=== PATIENT | female | born 1995 ===

== ENCOUNTER → 2018-03-07 | Outpatient (CLI) | payer OTHER ==
[~2018-03-07] MED LIST: Naprosyn500 MG PO; Norco 5-325 Ta1 EACH PO
[2018-03-07 14:17] LABS: Candida species (DNA Probe) Negative (NEGATIVE); G. vaginalis (DNA Probe) Negative (NEGATIVE); T. vaginalis (DNA Probe) Negative (NEGATIVE)
== END ==
LOC: LAB SHORT 11:41 → LAB 11:41
PROVIDERS: Advanced Practice Midwife
DX: Z01.419 Encounter for gynecological examination (general) (routine) without abnormal findings (principal); Z11.3 Encounter for screening for infections with a predominantly sexual mode of transmission; R10.2 Pelvic and perineal pain
CPT/HCPCS: 87480; 87510; 87660; G0123

== ENCOUNTER → 2021-01-15 | Outpatient (CLI) | payer OTHER | END | disposition home or self-care (01) | LOC: LAB SHORT 13:48 → PLD 13:48 | DX: R87.619 Unspecified abnormal cytological findings in specimens from cervix uteri (principal) | CPT/HCPCS: 88305 ==

== ENCOUNTER → 2021-02-05 | Outpatient (CLI) | payer OTHER, SELFPAY | LOC: PLD 13:35 → LAB SHORT 13:35 | DX: R87.619 Unspecified abnormal cytological findings in specimens from cervix uteri (principal) | CPT/HCPCS: 88307 ==

== ENCOUNTER → 2021-10-29 | Outpatient (CLI) | payer OTHER ==
[2021-10-29 18:04] LABS: Source, Urine Clean Catch
[2021-10-29 19:31] LABS: Bacteria Few /hpf; Mucus Light (0-Heavy); Red Blood Cells, Urine 0-2 /hpf (0-2); Squamous Epithelial Cells Many /hpf (Few); White Blood Cells, Urine 0-2 /hpf (0-5)
== END | disposition home or self-care (01) ==
LOC: LAB SHORT 18:02
PROVIDERS: Advanced Practice Midwife
DX: Z34.01 Encounter for supervision of normal first pregnancy, first trimester (principal)
CPT/HCPCS: 81015; 87086

== ENCOUNTER → 2021-11-23 | Outpatient (CLI) | payer OTHER ==
[2021-11-26 00:07] LABS: CHLAMYDIA TRACHOMATIS, NAA Negative (Negative)
== END | disposition home or self-care (01) ==
LOC: LAB SHORT 17:21
PROVIDERS: Advanced Practice Midwife
DX: Z36.89 Encounter for other specified antenatal screening (principal)
CPT/HCPCS: 87491; 87591; G0123

== ENCOUNTER 2022-06-08 04:12 | Inpatient (IN) | payer BC ==
[~2022-06-08] VITALS: Ht 170.2 cm; Wt 81.6 kg
[2022-06-08 05:16] LABS: BASOPHILS ABSOLUTE AUTO 0.03 K/mm3 (0.00-0.23); BASOPHILS PERCENT AUTO 0 % (0-2); EOSINOPHILS ABSOLUTE AUTO 0.08 K/mm3 (0.00-0.68); EOSINOPHILS PERCENT AUTO 1 % (0-6); Hematocrit 37.9 % (33.0-51.0); Hemoglobin 12.5 g/dL (11.5-16.0); IMMATURE GRAN ABSOLUTE AUTO 0.03 K/mm3 (0.00-0.10); IMMATURE GRAN PERCENT AUTO 0 % (0-1); LYMPHOCYTES ABSOLUTE AUTO 2.64 K/mm3 (0.84-5.20); LYMPHOCYTES PERCENT AUTO 27 % (21-46); MONOCYTES ABSOLUTE AUTO 0.83 K/mm3 (0.16-1.47); MONOCYTES PERCENT AUTO 8 % (4-13); Mean Corpuscular HGB 29.9 pg (26.0-34.0); Mean Corpuscular Volume 91 fL (80-100); Mean Platelet Volume 11.9 fL (9.1-12.4); NEUTROPHILS ABSOLUTE AUTO 6.36 K/mm3 (1.96-9.15); NEUTROPHILS PERCENT AUTO 64 % (41-73); Platelet Count 168 K/mm3 (150-400); RDW Coefficient Variation 14.2 % (11.7-14.2); RDW Standard Deviation 46.8 fL (35.1-46.3); Red Blood Cell Count 4.18 M/mm3 (3.80-5.20); White Blood Cell Count 9.97 K/mm3 (4.00-11.30)
[2022-06-08] MEDS ORDERED: PRENATAL TABLE1 EAC2 (06:19)
[2022-06-08] MEDS ORDERED: FAMO10 PO (06:19)
--- NOTE | 2022-06-08 07:34 | NUR ---
PT R/T BED FROM SHOWERING. UNABLE TO VOID AT THIS TIME. DENIES PAIN. NO COMPLAINTS. LULY SELF AND NB CARE WELL.
--- NOTE | 2022-06-08 09:44 | NUR ---
Spiritual Care Visit Request. Pt. is in bed, holding her girl. Spouse is present and welcomes my visit. Pt. and spouse are both pleasant and raport is quickly established. Pt. verbalized that this is their first child. Listen empatheticly with a calm but joyful presence. Walker a blessing over the baby and the family. Pt. and spouse, displayed evidence of appreciation, and verbalized gratitude for the spiritual care visit.
[2022-06-09] MEDS ORDERED: IBUP800 PO (08:58)
--- NOTE | 2022-06-09 09:32 | NUR ---
DISCHARGE DC HOME STABLE. CARING FOR SELF AND BABY INDEPENDANTLY. LOCHIA SCANT. VSS. VERBALIZES UNDERSTANDING OF DC INSTRUCTIONS AND FOLLOW UP APPOINTMENTS. NO QUESTIONS OR CONCERNS.
== END 2022-06-09 09:41 | disposition home or self-care (01) | DRG 807 ==
LOC: OBS 04:12 → BC 04:13
PROVIDERS: ADMIT Advanced Practice Midwife
PROC: 10E0XZZ Delivery of Products of Conception, External Approach (ICD-10-PCS; principal; 2022-06-08)
PROC: 0KQM0ZZ Repair Perineum Muscle, Open Approach (ICD-10-PCS; 2022-06-08)
DX: O62.3 Precipitate labor (principal); Z37.0 Single live birth; Z3A.39 39 weeks gestation of pregnancy; O70.1 Second degree perineal laceration during delivery; Z98.890 Other specified postprocedural states; Z79.899 Other long term (current) drug therapy
CPT/HCPCS: 36415; 85025; 86850; 86900; 86901; A9270; J1885

== ENCOUNTER 2022-07-15 18:21 | Emergency (ER) | payer BC ==
[~2022-07-15] VITALS: Ht 170.2 cm; Wt 73.5 kg
[~2022-07-15 18:21] MED LIST changes: +FAMO10 PO; +IBUP800 PO; +PRENATAL TABLE1 EAC2
[2022-07-15 19:01] LABS: Source, Urine Clean Catch
[2022-07-15 19:05] LABS: Appearance, Urine Hazy (Clear); Bilirubin, Urine Neg (Neg); Blood, Urine 2+ (Neg); Color, Urine Yellow (P-Yellow); Glucose Qualitative, Urine Neg (Neg); Ketones, Urine Neg (Neg); Leukocyte Esterase, Urine 2+ (Neg); Nitrite, Urine Neg (Neg); Protein, Urine Neg (Neg); Urobilinogen, Urine NORM (Normal)
[2022-07-15 19:30] LABS: BASOPHILS ABSOLUTE AUTO 0.02 K/mm3 (0.00-0.23); BASOPHILS PERCENT AUTO 0 % (0-2); EOSINOPHILS PERCENT AUTO 2 % (0-6); Hematocrit 38.6 % (33.0-51.0); Hemoglobin 12.9 g/dL (11.5-16.0); IMMATURE GRAN ABSOLUTE AUTO 0.01 K/mm3 (0.00-0.10); IMMATURE GRAN PERCENT AUTO 0 % (0-1); LYMPHOCYTES ABSOLUTE AUTO 1.94 K/mm3 (0.84-5.20); LYMPHOCYTES PERCENT AUTO 33 % (21-46); MONOCYTES ABSOLUTE AUTO 0.52 K/mm3 (0.16-1.47); MONOCYTES PERCENT AUTO 9 % (4-13); Mean Corpuscular HGB 30.1 pg (26.0-34.0); Mean Corpuscular HGB Conc 33.4 g/dL (31.5-36.5); Mean Corpuscular Volume 90 fL (80-100); Mean Platelet Volume 10.9 fL (9.1-12.4); NEUTROPHILS ABSOLUTE AUTO 3.34 K/mm3 (1.96-9.15); NEUTROPHILS PERCENT AUTO 56 % (41-73); Platelet Count 214 K/mm3 (150-400); RDW Coefficient Variation 13.5 % (11.7-14.2); RDW Standard Deviation 44.5 fL (35.1-46.3); Red Blood Cell Count 4.29 M/mm3 (3.80-5.20); White Blood Cell Count 5.93 K/mm3 (4.00-11.30)
[2022-07-15 19:31] LABS: Bacteria Mod /hpf; Squamous Epithelial Cells Many /hpf (Few)
[2022-07-15 19:32] LABS: Transitional Epithelial Cells Mod /hpf (0-Rare)
[2022-07-15 19:49] LABS: Albumin, Blood 3.9 g/dL (3.4-5.0); Albumin/Globulin Ratio 1.3 (0.8-1.8); Bilirubin, Total 0.5 mg/dL (0.1-1.0); Bun/Creatinine Ratio 13.6 (12.0-20.0); Calcium, Blood 8.9 mg/dL (8.5-10.1); Creatinine, Blood 0.95 mg/dL (0.40-1.00); Globulin, Blood 3.1 g/dL (2.2-4.0); Potassium, Blood 3.6 mmol/L (3.5-5.5)
[2022-07-16] MEDS ORDERED: Percocet 5-3251 EACH PO (00:03)
[2022-07-16] MEDS ORDERED: ONDA4ODT SL (00:03)
== END 2022-07-16 00:23 | disposition home or self-care (01) ==
LOC: ER 18:21
PROVIDERS: Physician Assistant
DX: N13.2 Hydronephrosis with renal and ureteral calculous obstruction (principal); R10.32 Left lower quadrant pain
CPT/HCPCS: 74177; 76856; 80053; 81001; 85025; 96374; 96375; 99284-25; A9270; J1170; J1885; J2405; J7030; Q9967

== ENCOUNTER 2023-11-19 10:21 | Emergency (ER) | payer OTHER ==
[~2023-11-19] VITALS: Ht 167.6 cm; Wt 63.0 kg
[~2023-11-19 10:21] MED LIST changes: +ONDA4ODT SL; +Percocet 5-3251 EACH PO
[2023-11-19] MEDS ORDERED: PYRI100 PO (11:31)
[2023-11-19 11:32] LABS: BASOPHILS ABSOLUTE AUTO 0.01 K/mm3 (0.00-0.23); BASOPHILS PERCENT AUTO 0 % (0-2); EOSINOPHILS ABSOLUTE AUTO 0.03 K/mm3 (0.00-0.68); EOSINOPHILS PERCENT AUTO 1 % (0-6); Hematocrit 36.4 % (33.0-51.0); Hemoglobin 12.5 g/dL (11.5-16.0); IMMATURE GRAN ABSOLUTE AUTO 0.01 K/mm3 (0.00-0.10); IMMATURE GRAN PERCENT AUTO 0 % (0-1); LYMPHOCYTES ABSOLUTE AUTO 1.59 K/mm3 (0.84-5.20); LYMPHOCYTES PERCENT AUTO 39 % (21-46); MONOCYTES ABSOLUTE AUTO 0.39 K/mm3 (0.16-1.47); MONOCYTES PERCENT AUTO 10 % (4-13); Mean Corpuscular HGB 29.1 pg (26.0-34.0); Mean Corpuscular HGB Conc 34.3 g/dL (31.5-36.5); Mean Corpuscular Volume 85 fL (80-100); Mean Platelet Volume 11.1 fL (9.1-12.4); NEUTROPHILS ABSOLUTE AUTO 2.05 K/mm3 (1.96-9.15); NEUTROPHILS PERCENT AUTO 50 % (41-73); Platelet Count 196 K/mm3 (150-400); RDW Coefficient Variation 13.1 % (11.7-14.2); RDW Standard Deviation 40.3 fL (35.1-46.3); Red Blood Cell Count 4.29 M/mm3 (3.80-5.20); White Blood Cell Count 4.08 K/mm3 (4.00-11.30)
[2023-11-19] MEDS ORDERED: UNISOM SIMPLE2.5 MG PO (11:32)
[2023-11-19 12:01] LABS: Albumin, Blood 3.5 g/dL (3.4-5.0); Bilirubin, Total 0.5 mg/dL (0.1-1.0); Bun/Creatinine Ratio 15.1 (12.0-20.0); Calcium, Blood 8.7 mg/dL (8.5-10.1); Creatinine, Blood 0.66 mg/dL (0.40-1.00); Globulin, Blood 3.6 g/dL (2.2-4.0); Potassium, Blood 4.2 mmol/L (3.5-5.5); Total Protein, Blood 7.1 g/dL (6.4-8.2)
[2023-11-19] MEDS ORDERED: ONDA4ODT MM (12:17)
[2023-11-19 12:23] VITALS: BP 110/63
== END 2023-11-19 12:36 | disposition home or self-care (01) ==
LOC: ER 10:21
PROVIDERS: Student in an Organized Health Care Education/Training Program
DX: O21.9 Vomiting of pregnancy, unspecified (principal); Z3A.10 10 weeks gestation of pregnancy
CPT/HCPCS: 80053; 85025; 96360; 99284-25; J7030

== ENCOUNTER → 2023-11-30 | Outpatient (CLI) | payer OTHER ==
[~2023-11-30] MED LIST changes: +ONDA4ODT MM; +PYRI100 PO; +UNISOM SIMPLE2.5 MG PO
== END ==
LOC: LAB SHORT 10:18 → LAB 10:18
PROVIDERS: Advanced Practice Midwife
DX: Z01.419 Encounter for gynecological examination (general) (routine) without abnormal findings (principal)
CPT/HCPCS: G0123

== ENCOUNTER → 2024-05-09 | Outpatient (CLI) | payer OTHER | LOC: LAB 12:42 → LAB SHORT 12:42 | DX: O09.92 Supervision of high risk pregnancy, unspecified, second trimester (principal) | CPT/HCPCS: 87081; 87150 ==

== ENCOUNTER 2024-05-29 07:04 | Inpatient (IN) | payer OTHER ==
[~2024-05-29] VITALS: Ht 170.2 cm; Wt 77.2 kg
[2024-05-29] VITALS (19 sets, daily range): BP systolic 102–133; BP diastolic 55–71
[2024-05-29] MEDS ORDERED: Misoprostol 200 MCG Tab PR PRN ×2 (08:00→16:30)
[2024-05-29] MEDS ORDERED: Oxytocin 10 Unit / ML Vial IM PRN (08:00)
[2024-05-29] MEDS ORDERED: Ondansetron HCl 2 MG / ML 2ML Vial IV PRN ×2 (08:00→11:15)
[2024-05-29] MEDS ORDERED: OXYTOCIN/RINGER'S LACTATE 500 ML IV SCH ×3 (08:00→16:25)
[2024-05-29] MEDS ORDERED: Carboprost Tromethamine 250 MCG/ML 1ML Amp IM PRN (08:00)
[2024-05-29] MEDS ORDERED: Tranexamic Acid 100 ML IV SCH (08:00)
[2024-05-29] MEDS ORDERED: Methylergonovine Maleate 0.2MG / ML 1ML Amp IM PRN ×2 (08:00→16:30)
[2024-05-29] MEDS ORDERED: Lactated Ringer's 1,000 ML IV SCH ×3 (08:00→16:30)
[2024-05-29] MEDS ORDERED: Misoprostol 200 MCG Tab XX PRN (08:00)
[2024-05-29] MEDS ORDERED: Acetaminophen 500 MG Tab PO PRN (08:00)
[2024-05-29] MEDS ORDERED: Calcium Carbonate 500 MG Tab Chew PO SCH (08:05)
[2024-05-29] MEDS ORDERED: Ampicillin Sod 2,000 MG in NS 100 ML IV ONE (08:10)
[2024-05-29 08:14] LABS: BASOPHILS ABSOLUTE AUTO 0.02 K/mm3 (0.00-0.23); BASOPHILS PERCENT AUTO 0 % (0-2); EOSINOPHILS ABSOLUTE AUTO 0.06 K/mm3 (0.00-0.68); EOSINOPHILS PERCENT AUTO 1 % (0-6); Hemoglobin 12.2 g/dL (11.5-16.0); IMMATURE GRAN ABSOLUTE AUTO 0.02 K/mm3 (0.00-0.10); IMMATURE GRAN PERCENT AUTO 0 % (0-1); LYMPHOCYTES ABSOLUTE AUTO 2.16 K/mm3 (0.84-5.20); LYMPHOCYTES PERCENT AUTO 37 % (21-46); MONOCYTES ABSOLUTE AUTO 0.52 K/mm3 (0.16-1.47); MONOCYTES PERCENT AUTO 9 % (4-13); Mean Corpuscular HGB 30.3 pg (26.0-34.0); Mean Corpuscular HGB Conc 33.9 g/dL (31.5-36.5); Mean Corpuscular Volume 89 fL (80-100); Mean Platelet Volume 11.8 fL (9.1-12.4); NEUTROPHILS ABSOLUTE AUTO 3.14 K/mm3 (1.96-9.15); NEUTROPHILS PERCENT AUTO 53 % (41-73); Platelet Count 149 K/mm3 (150-400); RDW Coefficient Variation 13.7 % (11.7-14.2); Red Blood Cell Count 4.03 M/mm3 (3.80-5.20); White Blood Cell Count 5.92 K/mm3 (4.00-11.30)
[2024-05-29] MEDS ORDERED: Misoprostol 25 MCG Tab VAG PRN (09:40)
[2024-05-29] MEDS ORDERED: Acetaminophen 325 MG TABLET PO PRN ×2 (11:10→16:25)
[2024-05-29] MEDS ORDERED: FentaNYL Citrate 50 MCG/ML 2 ML Injection IV PRN (11:10)
[2024-05-29] MEDS ORDERED: Ampicillin Sod 1,000 MG in NS 50 ML IV SCH (12:00)
[2024-05-29] MEDS ORDERED: Ketorolac Tromethamine 30mg Vial IV ONE ×2 (15:50→17:00)
[2024-05-29] MEDS ORDERED: Lanolin Cream TOP PRN (16:25)
[2024-05-29] MEDS ORDERED: Measles/Mumps/Rubella Vaccine 0.5 ML Vial SC PRN (16:25)
[2024-05-29] MEDS ORDERED: Docusate Sodium 100 MG Cap PO PRN (16:30)
[2024-05-29] MEDS ORDERED: Witch Hazel/Glycerin PADS TOP PRN (16:30)
[2024-05-29] MEDS ORDERED: Benzocaine Topical Anesthetic Spray 60GM TOP PRN (16:30)
[2024-05-29] MEDS ORDERED: Ibuprofen 400 MG Tab PO PRN (16:35)
[2024-05-29] MEDS ORDERED: Ketorolac Tromethamine 30mg Vial IV PRN (17:00)
[2024-05-30 00:16] VITALS: BP 132/73
[2024-05-30 04:17] VITALS: BP 113/61
[2024-05-30 08:37] VITALS: BP 123/58
[2024-05-30] MEDS ORDERED: Prenatal Vit/FE Fumarate/FA 1 Tab PO SCH (09:00)
[2024-05-30 12:09] VITALS: BP 108/65
--- NOTE | 2024-05-30 12:30 | NUR ---
DISCHARGE TEACHING COMPLETED QUESTIONS ANSWERED, VERBALIZED UNDERSTANDING CARE AND FOLLOW UP APPOINTMENT
--- NOTE | 2024-05-30 15:55 | NUR ---
DISCHARGED HOME WITH NB, MMR NOT GIVEN WITH GIVE AT PP F/U APPT ON 06/01/24
== END 2024-05-30 15:55 | disposition home or self-care (01) | DRG 806 ==
LOC: OBS 07:04 → BC 07:05 → OBS 07:41 → BC 07:41
PROVIDERS: ADMIT Advanced Practice Midwife
PROC: 10E0XZZ Delivery of Products of Conception, External Approach (ICD-10-PCS; principal; 2024-05-29)
PROC: 10907ZC Drainage of Amniotic Fluid, Therapeutic from Products of Conception, Via Natural or Artificial Opening (ICD-10-PCS; 2024-05-29)
DX: O36.5930 Maternal care for other known or suspected poor fetal growth, third trimester, not applicable or unspecified (principal); O99.12 Other diseases of the blood and blood-forming organs and certain disorders involving the immune mechanism complicating childbirth; Z37.0 Single live birth; Z3A.37 37 weeks gestation of pregnancy; O99.824 Streptococcus B carrier state complicating childbirth; D69.6 Thrombocytopenia, unspecified; Z98.890 Other specified postprocedural states; Z79.899 Other long term (current) drug therapy; O70.0 First degree perineal laceration during delivery
CPT/HCPCS: 36415; 85025; 86850; 86900; 86901; A9270; J0290; J1885; J2405; J2590; J7120

== ENCOUNTER → 2024-07-13 | Outpatient (CLI) | payer OTHER ==
[2024-07-13 15:38] LABS: Bacterial Vaginosis PCR Negative (NEGATIVE); Candida Group, PCR NOT DETECTED (NOT DETECT); Candida glabrata-krusei, PCR NOT DETECTED (NOT DETECT)
== END | disposition home or self-care (01) ==
LOC: LAB SHORT 13:16 → LAB 13:16
PROVIDERS: Obstetrics & Gynecology
DX: N76.0 Acute vaginitis (principal)
CPT/HCPCS: 87481; 87661; 87801

== ENCOUNTER → 2025-11-05 | Outpatient (CLI) | payer OTHER ==
[2025-11-07 16:36] LABS: HSV SUBTYPE SOURCE NASAL
== END | disposition home or self-care (01) ==
LOC: LAB SHORT 16:42
PROVIDERS: Registered Nurse
DX: B00.9 Herpesviral infection, unspecified (principal)
CPT/HCPCS: 87529